=== PATIENT | female | born 1955 | race Caucasian/White ===

== ENCOUNTER 2019-09-23 13:38 | Inpatient (IN) ==
[2019-09-24] MEDS ORDERED: Mag Hydrox/Al Hydrox/Simeth 30 ML UDC PO PRN (21:40)
[2019-09-24] MEDS ORDERED: Ondansetron ODT 4 MG TAB.RAPDIS SL PRN (21:41)
[2019-09-24] MEDS: Gabapentin 300 MG CAPSULE PO SCH (22:22)
[2019-09-24] MEDS: Melatonin 3 MG TABLET PO PRN (22:22)
[2019-09-24] MEDS: Diclofenac Sodium (DR) 50 MG TABLET.DR PO SCH (22:22)
[2019-09-24] MEDS: FISH OIL 1000MG PO SCH (22:23)
[2019-09-24] MEDS: *HR* OxyCODONE Immed Rel 5 MG TABLET PO PRN (22:23)
[2019-09-25 06:12] LABS: Alanine Aminotransferase 9 Units/L (7-52); Albumin 3.4 g/dL (3.5-5.7); Albumin/Globulin Ratio 1.5 (1.1-2.2); Alkaline Phosphatase 61 Units/L (34-104); Aspartate Amino Transferase 8 Units/L (13-39); BUN/Creatinine Ratio 25 (6-26); Bilirubin,Total 0.4 mg/dL (0.3-1.0); Blood Urea Nitrogen 13 mg/dL (8-23); Calcium 8.5 mg/dL (8.6-10.3); Carbon Dioxide 30 mEq/L (23-29); Chloride 104 mEq/L (98-107); Globulin 2.3 g/dL (2.4-3.5); Glucose 113 mg/dL (70-105); Magnesium 2.2 mg/dL (1.6-2.6); Osmolality,Calculated 289 (280-300); Potassium 3.7 mEq/L (3.5-5.1); Sodium 139 mEq/L (136-145); Total Protein 5.7 g/dL (6.4-8.9); eGFR For African Americans > 60 (> 60); eGFR For Non-African Americans > 60 (> 60)
[2019-09-25] MEDS: Diclofenac Sodium (DR) 50 MG TABLET.DR PO SCH ×3 (08:43→22:18)
[2019-09-25] MEDS: Gabapentin 300 MG CAPSULE PO SCH ×2 (08:43→22:12)
[2019-09-25] MEDS: *HR* OxyCODONE Immed Rel 5 MG TABLET PO PRN ×3 (08:43→17:28)
[2019-09-25] MEDS: Multivit/Ca/Min/Fe/FA 1 TAB TABLET PO SCH (08:43)
[2019-09-25] MEDS: FISH OIL 1000MG PO SCH ×2 (08:44→22:58)
[2019-09-25 10:15] LABS: Basophils % 0.4 %; Eosinophils # 0.2 K/mcL (0.0-0.6); Hematocrit 29.3 % (35.3-44.9); Hemoglobin 9.7 g/dL (11.5-15.4); Immature Granulocytes % 0.5 % (0-4); Lymphocytes # 2.3 K/mcL (0.6-4.6); Lymphocytes % 23.8 %; Mean Corpuscular HGB Conc 33.1 g/dL (31.6-35.5); Mean Corpuscular Hemoglobin 29.8 pg (28.0-33.3); Mean Corpuscular Volume 90.2 fL (83.0-100.0); Mean Platelet Volume 9.5 fL (9.4-12.4); Monocytes # 0.9 K/mcL (0.0-1.3); Monocytes % 9.5 %; Neutrophils # 6.3 K/mcL (1.6-8.9); Platelet Count 228 K/mcL (140-400); Red Blood Count 3.25 M/mcL (3.82-4.97); Red Cell Distribution Width 12.8 % (11.5-14.5); Segmented Neutrophils % 63.8 %; White Blood Count 9.8 K/mcL (4.3-11.1)
[2019-09-25] MEDS: Lisinopril-HCTZ 20-12.5mg TABLET PO SCH (17:28)
[2019-09-25] MEDS: Melatonin 3 MG TABLET PO PRN (22:09)
[2019-09-25] MEDS: Acetaminophen 325 MG TABLET PO PRN (22:21)
[2019-09-26] MEDS: *HR* OxyCODONE Immed Rel 5 MG TABLET PO PRN ×4 (00:23→21:33)
[2019-09-26] MEDS: *HR* Enoxaparin 40 MG/0.4 ML SYRINGE SQ SCH (06:12)
[2019-09-26] MEDS: Diclofenac Sodium (DR) 50 MG TABLET.DR PO SCH ×3 (08:38→21:34)
[2019-09-26] MEDS: Gabapentin 300 MG CAPSULE PO SCH ×2 (08:39→21:31)
[2019-09-26] MEDS: Multivit/Ca/Min/Fe/FA 1 TAB TABLET PO SCH (08:39)
[2019-09-26] MEDS: FISH OIL 1000MG PO SCH ×2 (08:41→21:35)
[2019-09-26] MEDS: Lisinopril-HCTZ 20-12.5mg TABLET PO SCH (19:00)
[2019-09-26] MEDS: Melatonin 3 MG TABLET PO PRN (21:34)
[2019-09-27] MEDS: *HR* OxyCODONE Immed Rel 5 MG TABLET PO PRN ×4 (06:22→22:58)
[2019-09-27] MEDS: *HR* Enoxaparin 40 MG/0.4 ML SYRINGE SQ SCH (06:22)
[2019-09-27] MEDS: Diclofenac Sodium (DR) 50 MG TABLET.DR PO SCH ×3 (09:41→22:57)
[2019-09-27] MEDS: Acetaminophen 325 MG TABLET PO PRN (09:41)
[2019-09-27] MEDS: FISH OIL 1000MG PO SCH ×2 (09:42→22:59)
[2019-09-27] MEDS: Multivit/Ca/Min/Fe/FA 1 TAB TABLET PO SCH (09:42)
[2019-09-27] MEDS: Gabapentin 300 MG CAPSULE PO SCH ×2 (09:42→22:57)
[2019-09-27] MEDS: Lisinopril-HCTZ 20-12.5mg TABLET PO SCH (17:32)
[2019-09-27] MEDS: Melatonin 3 MG TABLET PO PRN (22:57)
[2019-09-28] MEDS: *HR* Enoxaparin 40 MG/0.4 ML SYRINGE SQ SCH (06:04)
[2019-09-28] MEDS: Gabapentin 300 MG CAPSULE PO SCH ×2 (08:27→20:30)
[2019-09-28] MEDS: *HR* OxyCODONE Immed Rel 5 MG TABLET PO PRN ×2 (08:27→12:45)
[2019-09-28] MEDS: FISH OIL 1000MG PO SCH ×2 (08:27→20:31)
[2019-09-28] MEDS: Multivit/Ca/Min/Fe/FA 1 TAB TABLET PO SCH (08:27)
[2019-09-28] MEDS: Diclofenac Sodium (DR) 50 MG TABLET.DR PO SCH ×3 (08:27→20:30)
[2019-09-28] MEDS: Lisinopril-HCTZ 20-12.5mg TABLET PO SCH (17:26)
[2019-09-29] MEDS: *HR* OxyCODONE Immed Rel 5 MG TABLET PO PRN ×4 (01:00→22:16)
[2019-09-29] MEDS: Diclofenac Sodium (DR) 50 MG TABLET.DR PO SCH ×3 (06:33→22:16)
[2019-09-29] MEDS: FISH OIL 1000MG PO SCH ×2 (06:33→22:15)
[2019-09-29] MEDS: Multivit/Ca/Min/Fe/FA 1 TAB TABLET PO SCH (06:34)
[2019-09-29] MEDS: Gabapentin 300 MG CAPSULE PO SCH ×2 (06:35→22:16)
[2019-09-29] MEDS: *HR* Enoxaparin 40 MG/0.4 ML SYRINGE SQ SCH (06:35)
[2019-09-29] MEDS ORDERED: SUMAtriptan 6 MG/0.5 ML SQ ONE (11:15)
[2019-09-29] MEDS: Lisinopril-HCTZ 20-12.5mg TABLET PO SCH (17:15)
[2019-09-30] MEDS: *HR* Enoxaparin 40 MG/0.4 ML SYRINGE SQ SCH (05:31)
[2019-09-30 07:39] VITALS: BP 103/68
[2019-09-30] MEDS: Multivit/Ca/Min/Fe/FA 1 TAB TABLET PO SCH (08:11)
[2019-09-30] MEDS: Gabapentin 300 MG CAPSULE PO SCH (08:11)
[2019-09-30] MEDS: Diclofenac Sodium (DR) 50 MG TABLET.DR PO SCH (08:11)
[2019-09-30] MEDS: FISH OIL 1000MG PO SCH (08:12)
[2019-09-30] MEDS: *HR* OxyCODONE Immed Rel 5 MG TABLET PO PRN ×2 (09:36→13:23)
== END 2019-09-30 14:10 | disposition home or self-care (01) | DRG 560 ==
LOC: INPGRE 09-24 19:54